=== PATIENT | male | born 1980 | race Caucasian/White ===

== ENCOUNTER → 2017-01-19 | Outpatient (CLI) | payer MEDICARE, BC ==
[~2017-01-19] MED LIST: CINA60TA PO; CLON0.3T47 PO; METO25TA35 PO; MINO2.5T PO; PRED10TA PO
== END | disposition home or self-care (01) ==
LOC: CFH 16:06
PROVIDERS: ATTEND Nurse Practitioner
DX: M41.84 Other forms of scoliosis, thoracic region (principal); M54.2 Cervicalgia; M25.512 Pain in left shoulder
CPT/HCPCS: 72040

== ENCOUNTER → 2017-02-02 | Outpatient (CLI) | payer MEDICARE, BC | END | disposition home or self-care (01) | LOC: CFH 06:42 → EDSTATUS 07:00 | PROVIDERS: ATTEND Pain Medicine Pain Medicine | DX: M47.812 Spondylosis without myelopathy or radiculopathy, cervical region (principal) | CPT/HCPCS: 72141 ==

== ENCOUNTER → 2018-03-15 | Outpatient (CLI) | payer MEDICARE, BC | END | disposition home or self-care (01) | LOC: CFH 09:01 | PROVIDERS: ATTEND Internal Medicine Critical Care Medicine | DX: I51.7 Cardiomegaly (principal); I28.8 Other diseases of pulmonary vessels; N18.6 End stage renal disease | CPT/HCPCS: 71250 ==

== ENCOUNTER → 2018-05-11 | Outpatient (CLI) | payer MEDICARE, BC ==
[~2018-05-11] MED LIST changes: +AMLO10TA6 PO; +CARV6.252 PO; +CINA90TA PO; +HYDRALAZINE PO; +PRED5TAB PO
[2018-05-11 16:08] LABS: BASOPHILS # (AUTO) 0.09 x10^3/uL (0-0.1); BASOPHILS % (AUTO) 1 % (0-1); EOSINOPHILS # (AUTO) 0.65 x10^3/uL (0-0.4); EOSINOPHILS % (AUTO) 7 % (1-7); LYMPHOCYTES # (AUTO) 1.13 x10^3/uL (1-3.4); LYMPHOCYTES % (AUTO) 12 % (22-44); MD NO; MEAN CORPUSCULAR HEMOGLOBIN 31.3 pg (27.5-34.5); MEAN CORPUSCULAR VOLUME 94.9 fL (81-97); MEAN PLATELET VOLUME 6.4 fL (7.4-10.4); MONOCYTES # (AUTO) 0.96 x10^3/uL (0.2-0.8); MONOCYTES % (AUTO) 10 % (2-9); NEUTROPHILS % (AUTO) 71 % (42-75); PLATELET COUNT 323 x10^3/uL (130-400); RED BLOOD COUNT 3.44 x10^6/uL (4.38-5.82); RED CELL DISTRIBUTION WIDTH 16.1 % (9.4-14.8)
[2018-05-11 16:20] LABS: INTERNATIONAL NORMALIZED RATIO 1.1 (0.93-1.1); PROTHROMBIN TIME 11.4 Seconds (9.6-11.5)
== END | disposition home or self-care (01) ==
LOC: STAR 15:37
PROVIDERS: ATTEND Internal Medicine Critical Care Medicine
DX: R06.02 Shortness of breath (principal)
CPT/HCPCS: 36415; 85025; 85610; 85730

== ENCOUNTER 2018-05-16 07:53 | Day surgery (SDC) | payer MEDICARE, BC ==
[2018-05-11 16:12] VITALS: BP 153/88
[~2018-05-16] VITALS: Ht 185.4 cm; Wt 72.6 kg
[2018-05-16] MEDS ORDERED: SODIUM CHLORIDE 0.9% 1,000 ML IV SCH (08:17)
[2018-05-16 08:20] VITALS: BP 153/88
[2018-05-16] MEDS ORDERED: FENTANYL PF 100 MCG/2ML ONE (09:22)
[2018-05-16] MEDS ORDERED: MIDAZOLAM 1 MG/ML, 5ML ONE ×2 (09:23)
[2018-05-16] MEDS ORDERED: LIDOCAINE 4% TOPICAL SOLUTION 50 ML ONE (12:00)
[2018-05-16] MEDS ORDERED: LIDOCAINE 2%, 20ML ONE (12:00)
== END 2018-05-16 14:45 | disposition home or self-care (01) ==
LOC: OUT 07:53
PROVIDERS: ATTEND Internal Medicine Critical Care Medicine
DX: J18.8 Other pneumonia, unspecified organism (principal)
CPT/HCPCS: 31624; 71045; 87015; 87070; 87077; 87102; 87116; 87205; 87206; 88112; 88305; 99152; 99153; J2250; J3010; J3490; J7030; 87186

== ENCOUNTER → 2018-08-03 | Outpatient (CLI) | payer MEDICARE, BC | END | disposition home or self-care (01) | LOC: CVU 12:47 | PROVIDERS: ATTEND Nurse Practitioner Family | DX: I35.0 Nonrheumatic aortic (valve) stenosis (principal); I07.1 Rheumatic tricuspid insufficiency; I25.2 Old myocardial infarction; I48.91 Unspecified atrial fibrillation; Z94.0 Kidney transplant status | CPT/HCPCS: 93306 ==